=== PATIENT | male | born 1970 | race Caucasian/White ===

== ENCOUNTER 2022-09-30 06:10 | Emergency (ER) | payer BC ==
[2022-09-30] MEDS ORDERED: Azithromycin 250 MG Tab PO ONE (07:41)
[2022-09-30] MEDS ORDERED: cefTRIAXone 1 GM, Lidocaine 1% 2.1 ML IM ONE ×2 (07:41)
[2022-09-30 08:27] LABS: ESTIMATED GFR 102 mL/min (>60)
[2022-09-30 09:36] LABS: C. TRACHOMATIS BY PCR NOT DETECTED; N. GONORRHOEAE BY PCR NOT DETECTED
== END 2022-09-30 08:50 | disposition home or self-care (01) ==
LOC: JD.ED 06:10
DX: B00.9 Herpesviral infection, unspecified (principal); L73.9 Follicular disorder, unspecified
CPT/HCPCS: 36415; 80053; 85025; 86140; 86592; 87449; 87491; 87529; 87591; 96372; 99283; A9270; J0696; G0433; J3490

== ENCOUNTER 2023-01-27 09:32 | Emergency (ER) | payer BC ==
[2023-01-27 11:58] LABS: BASOPHILS ABSOLUTE AUTO 0.02 K/mm3 (0.01-0.08); BASOPHILS PERCENT AUTO 0.4 % (0.1-1.2); EOSINOPHILS ABSOLUTE AUTO 0.04 K/mm3 (0.04-0.54); EOSINOPHILS PERCENT AUTO 0.7 (0.8-7.0); HEMATOCRIT 41.9 % (40.1-51.0); HEMOGLOBIN 14.7 gm/dl (13.7-17.5); IMMATURE GRAN ABSOLUTE AUTO 0.01 K/mm3 (0.00-0.10); IMMATURE GRAN PERCENT AUTO 0.2 % (<=1.0); LYMPHOCYTES ABSOLUTE AUTO 1.57 K/mm3 (1.32-3.57); LYMPHOCYTES PERCENT AUTO 28.6 % (21.8-53.1); MEAN CORPUSCULAR HEMOGLOBIN 31.9 pg (25.7-32.2); MEAN CORPUSCULAR HGB CONC 35.1 g/dl (32.2-35.5); MEAN CORPUSCULAR VOLUME 90.9 fl (79.0-92.2); MEAN PLATELET VOLUME 9.8 fl (9.4-12.3); MONOCYTES ABSOLUTE AUTO 0.45 K/mm3 (0.30-0.82); MONOCYTES PERCENT AUTO 8.2 % (5.3-12.2); NEUTROPHILS PERCENT AUTO 61.9 % (34.0-67.9); PLATELET COUNT,PLT 212 K/mm3 (163-337); RED BLOOD CELL COUNT 4.61 M/mm3 (4.63-6.08); WHITE BLOOD CELL COUNT,WBC 5.49 K/mm3 (4.23-9.07)
[2023-01-27 11:59] LABS: INR 1.07; PROTHROMBIN TIME 11.4 SECONDS (9.7-12.0)
[2023-01-27 12:00] LABS: PTT,PARTIAL THROMBOPLSTIN TIME 25.6 SECONDS (21.7-31.4)
[2023-01-27 12:03] LABS: A/G RATIO 1.2 (1-2); ALBUMIN 4.2 g/dl (3.4-5.0); ANION GAP 14.7 (5-15); BUN/CREATININE RATIO 16.4 (14-18); CALCIUM 8.9 mg/dL (8.5-10.1); CREATININE 1.4 mg/dL (0.7-1.3); EST CRCL DRUG DOSING (CG) 57.05 mL/min; POTASSIUM,K 3.7 mEq/L (3.5-5.1); PROTEIN TOTAL,TP 7.6 g/dl (6.4-8.2)
== END 2023-01-27 13:10 | disposition home or self-care (01) ==
LOC: JD.ED 09:32
DX: K60.2 Anal fissure, unspecified (principal); Z72.0 Tobacco use
CPT/HCPCS: 36415; 80053; 85025; 85610; 85730; 99282; 99283